=== PATIENT | female | born 1945 | race Caucasian/White ===

== ENCOUNTER 2025-02-11 14:45 | Outpatient (RCR) | payer MEDICARE, SELFPAY | END 2025-03-23 09:45 | disposition home or self-care (01) | PROVIDERS: PCP Family Medicine; Visit Provider Family Medicine | DX: R26.89 Other abnormalities of gait and mobility (principal); M25.511 Pain in right shoulder; G89.29 Other chronic pain; Z51.89 Encounter for other specified aftercare | CPT/HCPCS: 97110; 97161 ==